=== PATIENT | female | born 1950 | race Caucasian/White ===

== ENCOUNTER 2017-11-08 06:20 | Day surgery (SDC) | payer MEDICARE ==
[2017-11-05 10:15] VITALS: BP 127/82
[2017-11-05 10:43] LABS: BASOPHILS % (AUTO) 0.7 % (0.0-5.0); EOSINOPHILS % (AUTO) 2.3 % (0.0-8.0); HEMATOCRIT 46.3 % (36-48); LYMPHOCYTES % (AUTO) 26.8 % (21.0-51.0); MEAN CORPUSCULAR HEMOGLOBIN 32.6 pg (27.0-33.0); MEAN CORPUSCULAR VOLUME 93.1 fL (79-99); NEUTROPHILS % (AUTO) 65.2 % (40.0-77.0); PLATELET COUNT (AUTO) 192 K/uL (130-400); RED BLOOD CELL COUNT(AUTO) 4.97 MIL/uL (4.00-5.50); RED CELL DISTRIBUTION WIDTH 12.8 % (11.0-15.5)
[2017-11-05 10:56] LABS: APPEARANCE,URINE Clear (CLEAR); BILIRUBIN,URINE Negative (NEGATIVE); COLOR,URINE Yellow (YELLOW); GLUCOSE, URINE (UA) Negative (NEGATIVE); KETONES,URINE Negative (NEGATIVE); LEUKOCYTE ESTERASE ,URINE Negative (NEGATIVE); NITRATE,URINE Negative (NEGATIVE); OCCULT BLOOD,URINE Moderate (NEGATIVE); PROTEIN,URINE Negative (NEGATIVE); UROBILINOGEN,URINE 0.2 mg/dL (0.2-1.0)
[2017-11-05 10:59] LABS: POTASSIUM 4.2 mmol/L (3.5-5.1)
[2017-11-05 11:01] LABS: INR 0.9 (0.85-1.15); PROTHROMBIN TIME 9.3 SEC (9.6-11.6)
[2017-11-05 11:07] LABS: BACTERIA,URINE Rare /HPF (None Seen); RBC,URINE 0-1 /HPF (0-1); SQUAMOUS EPITHELIAL CELL,UR Rare /HPF (0-2); WBC,URINE 0-1 /HPF (0-1)
[2017-11-08] VITALS (18 sets, daily range): BP systolic 101–125; BP diastolic 53–81
[~2017-11-08] VITALS: Ht 179.1 cm; Wt 64.2 kg
[~2017-11-08 06:20] MED LIST: ATOR20TA65 PO; DRAMAMINE PO; RANI150T7 PO; RIZA10TA41 PO; ZONISAMIDE PO
[2017-11-08] MEDS: GENTAMICIN 80 MG/NS 100 ML PB 100 ML IV SCH ×2 (07:00→07:50)
[2017-11-08] MEDS: CEFTRIAXONE SODIUM 1 GM IVP SCH ×2 (07:00→08:20)
[2017-11-08] MEDS ORDERED: LACTATED RINGERS 1000ML 1,000 ML IV ONE (07:14)
[2017-11-08] MEDS ORDERED: LIDOCAINE PF 2% 5ML ABBOJECT ONE (07:44)
[2017-11-08] MEDS ORDERED: GLYCOPYRROLATE 0.2 MG/ML 5 ML VIAL ONE (07:44)
[2017-11-08] MEDS ORDERED: NEOSTIGMINE 5MG/5ML SYR IV ONE (07:44)
[2017-11-08] MEDS ORDERED: DEXAMETHASONE SOD PHOSPHATE 10MG/ML 1ML VIAL ONE (07:44)
[2017-11-08] MEDS ORDERED: FENTANYL CITRATE PF 50 MCG/1 ML 2ML VIAL ONE (07:45)
[2017-11-08] MEDS ORDERED: MIDAZOLAM HCL 1 MG/ML 2ML VIAL ONE (07:45)
[2017-11-08] MEDS ORDERED: PROPOFOL 10 MG/ML 20ML VIAL IV ONE (07:45)
[2017-11-08] MEDS ORDERED: ISOVUE-370 50ML VIAL IV ONE (07:54)
[2017-11-08] MEDS ORDERED: CEPH500B PO (11:27)
== END 2017-11-08 11:50 | disposition home or self-care (01) ==
LOC: DAH 06:20
PROVIDERS: ATTEND Urology
DX: N20.0 Calculus of kidney (principal); G43.909 Migraine, unspecified, not intractable, without status migrainosus; E78.5 Hyperlipidemia, unspecified; Z79.899 Other long term (current) drug therapy
CPT/HCPCS: 36415; 52356; 74420; 80048; 81001; 82360; 85025; 85610; 87088; 88300; 93005; A4218; A4358; A4600; A6206; A6207; C1758; C1769; C1894; C2617; J0696; J1100; J1580; J2001; J2250; J2704; J2710; J3010; J3490; J7120 ×2; Q9967